=== PATIENT | female | born 1935 | race Caucasian/White ===

== ENCOUNTER 2024-07-31 09:59 | Inpatient (IN) ==
[2024-07-31] MEDS: SODIUM CHLORIDE 0.9% 1,000 ML IV SCH ×2 (11:01→15:18)
--- NOTE | 2024-07-31 11:41 | XRay Report ---
XR chest 1V portable CLINICAL HISTORY: Sepsis. COMPARISON STUDY: No previous studies for comparison. FINDINGS: There is mild elevation of the right hemidiaphragm. Lungs are clear. There is no pneumothor ax or pleural effusion. Cardiac size is normal. Mediastinal contours are normal. There is no evidence for pulmonary edema. IMPRESSION: No acute cardiopulmonary findings. ACT 112: Negative or not required by law. Electronically signed by: Gerard Caldwell M.D. 07/31/2024 11:39 AM
[2024-07-31 12:02] LABS: Hematocrit (blood only) 25.9 % (37.0-47.0); Hemoglobin 9.3 g/dl (12.0-16.0); Mean Corpuscular Hemoglobin 31.3 pg (25.0-34.0); Mean Corpuscular Hgb Conc 35.9 g/dL (32.0-36.0); Mean Corpuscular Volume 87.2 fL (80.0-100.0); Mean Platelet Volume 13.2 fL (9.4-12.4); Platelet Count 87 K/uL (130-400); RDW Coefficient of Variation 13.7 % (11.5-14.5); RDW Standard Deviation 44.2 fL (36.4-46.3); Red Blood Count 2.97 M/uL (4.20-5.40); White Blood Count 9.33 K/ul (4.8-10.8)
[2024-07-31 12:42] LABS: ALC (manual) 4.39 K/uL (1.2-3.4); ANC (manual) 4.67 K/uL (1.4-6.5); Lymphocytes # (manual) 1.12 K/uL (1.2-3.4); Lymphocytes % (manual) 12 %; Monocytes # (manual) 0.28 K/uL (0.11-0.59); Monocytes % (manual) 3 %; Neutrophils # (manual) 4.67 K/uL (1.40-6.50); Neutrophils % (manual) 50 %; Reactive Lymphocytes # (manual) 3.27 K/uL; Reactive Lymphocytes % (manual) 35 %
[2024-07-31 12:47] LABS: Troponin I High Sensitivity 12.1 pg/ml (0-14)
[2024-07-31 12:47] LABS: Procalcitonin 2.32 ng/ml (0-0.5)
--- NOTE | 2024-07-31 12:47 | Emergency Department Note ---
Impression & Plan Generalized weakness, Elevated procalcitonin ED Provider Note ED Provider Note NAME: VON AGUILAR AGE:89 SEX: Female : 1935 ARRIVES VIA: Private vehicle INFORMANT: Patient, family ED PROVIDER(s): Kimberly Meadows DO CHIEF COMPLAINT: Generalized weakness HPI: This is an 89-year-old female brought in by family due to concern for persistent generalized weakness. Patient sustained a fall last week and was taken to an outside facility. Sons at bedside report that she underwent CT and x-ray imaging as well as blood work and was ultimately thought to have a urinary tract infection and started on antibiotics. As a precaution because the patient lives alone the son's brought her home to live with one of them. Patient has had a decreased appetite and persistent weakness. They followed up with her PCP and was told that the urine culture was ultimately negative. They states she did not have any significant traumatic injury when she was evaluated at the outside facility. They were concerned that her symptoms have persisted despite treatment for the urinary tract infection and that upon learning that the ultimate culture was negative they were concerned for the etiology of her persistent weakness and potentially the original cause of her fall a week ago. No recent fevers or chills, no nausea or vomiting. They state prior to the fall a week ago patient would walk independently and would typically go for a walk of approximately a quarter mile every day. PAST MEDICAL HISTORY:See Below PAST SURGICAL HISTORY:See Below FAMILY HISTORY:See Below SOCIAL HISTORY:See Below HOME MEDICATIONS:See Below ALLERGIES:See Below VITALS:See Below PHYSICAL EXAMINATION: GENERAL: alert, unwell appearing, well nourished, no distress, non-toxic EYE EXAM: normal conjunctiva, PERRL and EOM's grossly intact OROPHARYNX: no exudate, no erythema, lips, buccal mucosa, and tongue normal and mucous membranes are moist NECK: supple, no nuchal rigidity, no adenopathy, non-tender LUNGS: Clear to auscultation. Normal chest wall mechanics, no w/r/r HEART: no murmurs, S1 normal and S2 normal ABDOMEN: abdomen soft, non-tender, normo-active bowel sounds, no masses, no rebound or guarding. BACK: Back is symmetrical on inspection and there is no deformity, no midline tenderness, no CVA tenderness. SKIN: no rashes, petechiae, orbruising UPPER EXTREMITIES: upper extremities are grossly normal. FROM, nml pulses b/l. LOWER EXTREMITIES: No pitting edema. FROM, nml pulses b/l. NEURO EXAM: Normal sensorium, cranial nerves II-XII grossly intact, normal speech, no facial droop,nogross weakness of arms, no gross weakness of legs. Gross sensation intact. No ataxia. Vital Signs: reviewed and remarkable Differential Diagnosis: dehydration, stroke, anemia, hypoglycemia, hyponatremia, hypernatremia, urinary tract infection, pneumonia, bronchitis, sepsis, gastroenteritis, additional abdominal pathology, metabolic abnormalities, as well as others were considered MEDICAL DECISION MAKING: This is an 89-year-old male presents to the emergency department due to concern for persistent weakness. Patient with a fall last week, recent diagnosis of urinary tract infection although culture ultimately negative. Family concerned for persistent weakness since that time without improvement. She was afebrile and hemodynamically stable on arrival. Labs drawn and sent, IV established, EKG and chest ray performed at bedside interpreted by me and patient monitored on telemetry. Patient sent for CT/CTA to further evaluate for other neurologic cause of her symptoms. Patient noted to have elevated LFTs however similar compared to 1 week ago based on outside labs. Patient noted to have anemia although this appears stable compared to prior additionally. CT imaging reassuring. Blood cultures had been obtained and sent as a precaution. Lactic acid reassuring however procalcitonin is significantly elevated. No leukocytosis. Patient given IV cefepime as a precaution. Nasal swab negative for acute viral syndrome. Given unclear cause of symptoms and concern for occult infection, case discussed with hospitalist team for additional evaluation and management. Mild hyponatremia was noted. Consultation(s): 1415: Discussed with Carmelita Pham hospitalist team, for additional evaluation and management. ER Treatment Provided: See below Diagnostics Interpreted By Me: -ECG: Normal sinus at 73, normal axis, normal intervals, no acute ST/T wave changes -Cardiac Monitoring: An order was placed for continuous cardiac monitoring. The monitor shows a rate of 78 with normal sinus rhythm. -Laboratory studies: As stated above and show below. -Imaging studies: ct head: no ICH Triage Nursing Note Reviewed Prior/Outside Records Reviewed -prior outpatient evaluation reviewed home papers brought with family at bedside Past Med/Surg History Problem List (Updated 07/31/24 @ 15:58 by JOHNNY Pineda) Glaucoma Hypertension Anemia Elevated liver enzymes Elevated procalcitonin (Acute) Generalized weakness (Acute) Medical History (Updated 07/31/24 @ 15:58 by JOHNNY Pineda) CKD (chronic kidney disease), stage III Osteoporosis Hyperlipidemia Surgical History (Updated 07/31/24 @ 15:58 by JOHNNY Pineda) History of cataract surgery History of arthroplasty of right knee Family History (Updated 07/31/24 @ 16:02 by JOHNNY Pineda) Mother Coronary heart disease Diabetes Sister Cancer Diabetes Social History (Updated 07/31/24 @ 16:04 by JOHNNY Pineda) Smoking Status: Never smoker Hx Alcohol Use: No Hx Substance Use: No Preferred Language: Georgian Communication Ability: Effective Unloader Operator Required: No Beliefs That Will Affect Care: None Current Living Situation: Alone Current Living Situation Comment: live in 2 story house current occupational status: retired Feels Safe at Home: Yes Assistive Devices: Walker Allergies Allergies Allergy/AdvReac Type Severity Reaction Status Date / Time No Known Allergies Allergy Verified 07/31/24 15:55 Home Meds Home Medications Medication Instructions Recorded Confirmed acetaminophen 500 mg tablet 1,000 mg PO DIRECTED PRN Pain 07/31/24 07/31/24 aspirin 81 mg tablet,delayed 81 mg PO HS 07/31/24 07/31/24 release calcium carbonate 1,200 mg PO DAILY 07/31/24 07/31/24 cholecalciferol (vitamin D3) 25 25 mcg PO DAILY 07/31/24 07/31/24 mcg (1,000 unit) capsule latanoprost 0.005 % eye drops 1 drp ophthalmic (eye) PM 07/31/24 07/31/24 lisinopril 20 mg tablet 20 mg PO HS 07/31/24 07/31/24 multivitamin 1 tab PO DAILY 07/31/24 07/31/24 nitrofurantoin 100 mg PO BID 07/31/24 07/31/24 monohydrate/macrocrystals 100 mg capsule timolol maleate 0.5 % eye drops 1 drp ophthalmic (eye) QAM 07/31/24 07/31/24 Results & Data (ED) Vital Signs Vital Signs - 24 hr 07/31/24 10:00 07/31/24 10:09 07/31/24 10:44 Temperature 35.2 C L Temperature Source Oral Pulse Rate 76 76 Pulse Rate [Apical] Respiratory Rate 20 Respiratory Effort / Characteristics Non-Labored Spontaneous Respiratory Depth Normal Respiratory Pattern Blood Pressure 91/58 L Blood Pressure [Right Arm] Blood Pressure Mean 69 Blood Pressure Mean [Right Arm] Pulse Oximetry 99 Oxygen Delivery Method Room Air Room Air Sepsis Recent Fever Within 48 Hours No Sepsis New/Unexplained Change in Mental Status N/A Sepsis Action Taken by Nursing Physician Notified 07/31/24 11:00 07/31/24 13:00 07/31/24 14:00 Temperature Temperature Source Pulse Rate Pulse Rate [Apical] 72 85 86 Respiratory Rate 18 18 18 Respiratory Effort / Characteristics Non-Labored Spontaneous Non-Labored Spontaneous Non-Labored Spontaneous Respiratory Depth Normal Normal Normal Respiratory Pattern Regular Regular Regular Blood Pressure Blood Pressure [Right Arm] 108/58 L 115/61 116/63 Blood Pressure Mean Blood Pressure Mean [Right Arm] 74 79 80 Pulse Oximetry 99 98 98 Oxygen Delivery Method Room Air Room Air Room Air Sepsis Recent Fever Within 48 Hours Sepsis New/Unexplained Change in Mental Status Sepsis Action Taken by Nursing 07/31/24 15:00 Temperature Temperature Source Pulse Rate Pulse Rate [Apical] 83 Respiratory Rate 18 Respiratory Effort / Characteristics Non-Labored Spontaneous Respiratory Depth Normal Respiratory Pattern Regular Blood Pressure Blood Pressure [Right Arm] 109/65 Blood Pressure Mean Blood Pressure Mean [Right Arm] 79 Pulse Oximetry 98 Oxygen Delivery Method Room Air Sepsis Recent Fever Within 48 Hours Sepsis New/Unexplained Change in Mental Status Sepsis Action Taken by Nursing Laboratory Data 08/01/24 06:30 08/01/24 06:30 Lab Results 07/31/24 07/31/24 07/31/24 Range/Units 10:54 10:56 12:06 WBC Cancelled 9.33 RBC Cancelled 2.97 L Hgb Cancelled 9.3 L Hct Cancelled 25.9 L MCV Cancelled 87.2 MCH Cancelled 31.3 MCHC Cancelled 35.9 RDW Std Deviation Cancelled 44.2 RDW Coeff of Casey Cancelled 13.7 Plt Count Cancelled 87 L MPV Cancelled 13.2 H Immature Gran % (Auto) Cancelled Neut % (Auto) Cancelled Lymph % (Auto) Cancelled [place] % (Auto) Cancelled Eos % (Auto) Cancelled Baso % (Auto) Cancelled Neut # (Auto) Cancelled Lymph # (Auto) Cancelled [place] # (Auto) Cancelled Eos # (Auto) Cancelled Baso # (Auto) Cancelled Immature Gran # (Auto) Cancelled Absolute Nucleated RBC Cancelled Nucleated RBC % (auto) Cancelled Neutrophils % (Manual) Cancelled 50 Band Neutrophils % Cancelled Lymphocytes % (Manual) Cancelled 12 Prolymphocyte % Cancelled Reactive Lymphs % (Man) Cancelled 35 Monocytes % (Manual) Cancelled 3 Eosinophils % (Manual) Cancelled Basophils % (Manual) Cancelled Metamyelocytes % (Man) Cancelled Myelocytes % (Man) Cancelled Promyelocytes % (Man) Cancelled Blast Cells % (Manual) Cancelled Plasma Cell % (Manual) Cancelled Other Cells % Cancelled Nucleated RBC % Cancelled Neutrophils # (Manual) Cancelled 4.67 Band Neutrophils # Cancelled Total Absolute Neuts Cancelled 4.67 Lymphocytes # (Manual) Cancelled 1.12 L Prolymphocyte # Cancelled Reactive Lymphs # Cancelled 3.27 Total Abs Lymphocytes Cancelled 4.39 H Monocytes # (Manual) Cancelled 0.28 Eosinophils # (Manual) Cancelled Basophils # (Manual) Cancelled Metamyelocytes # (Man) Cancelled Myelocytes # (Manual) Cancelled Promyelocytes # (Man) Cancelled Blast Cells # (Man) Cancelled Plasma Cell # (Manual) Cancelled Other Cells # Cancelled Nucleated RBCs # (Man) Cancelled Hypersegmented Neuts Cancelled Hyposegmented Neuts Cancelled Hypogranular Neuts Cancelled Large Granular Lymphs Cancelled # Lrg Granular Lymphs Cancelled Hairy Cells Cancelled Smudge Cells Cancelled Toxic Granulation Cancelled Toxic Vacuolation Cancelled Dohle Bodies Cancelled Taylor Rods Cancelled Platelet Estimate Cancelled Hypogranular Platelets Cancelled Giant Platelets Cancelled Platelet Satelliting Cancelled RBC Morphology Cancelled Polychromasia Cancelled Hypochromasia Cancelled Poikilocytosis Cancelled Basophilic Stippling Cancelled Anisocytosis Cancelled Microcytosis Cancelled Macrocytosis Cancelled Spherocytes Cancelled Pappenheimer Bodies Cancelled Sickle Cells Cancelled Target Cells Cancelled Tear Drop Cells Cancelled Ovalocytes Cancelled Stomatocytes Cancelled [place] Bodies Cancelled Echinocytes Cancelled Acanthocytes (Spur) Cancelled Rouleaux Cancelled RBC Agglutinates Cancelled Schistocytes Cancelled [place] Cell Cancelled Sodium 131 L (136-145) mmol/L Potassium 3.8 (3.5-5.1) mmol/L Chloride 100 (98-107) mmol/L Carbon Dioxide 26 (21-32) mmol/L Anion Gap 5 (3-11) BUN 40 H (6-23) mg/dl Creatinine 1.16 (0.6-1.2) mg/dl Est Cr Clr Drug Dosing 32.0 ml/min eGFR 45.07 BUN/Creatinine Ratio 34.5 H (10-20) Glucose 102 H (70-99(Fasting)) mg/dl Lactate 1.9 (0.4-2.0) mmol/L Calcium 8.2 L (8.6-10.3) mg/dl Magnesium 2.2 (1.7-2.4) mg/dl Iron 20 L (35-150) mcg/dl Unsaturated IBC 161 (155-355) mcg/dl Transferrin 157 L (200-360) mg/dl Ferritin 6873.0 H (8-388) ng/ml Total Bilirubin 0.8 (0.2-1.0) mg/dl Direct Bilirubin 0.2 (0-0.2) mg/dl AST 165 H (13-39) U/L ALT 116 H (7-52) U/L Alkaline Phosphatase 262 H (34-104) U/L Total Creatine Kinase 127 (26-192) U/L Troponin I High Sens 12.1 (0-14) pg/ml B-Natriuretic Peptide (0-100) pg/ml Total Protein 6.2 (6.0-8.3) gm/dl Albumin 3.0 L (3.4-5.0) gm/dl Vitamin B12 (180-914) pg/ml Folate (>5.38) ng/ml Procalcitonin Cancelled 2.32 H TSH 4.598 H (0.300-4.500) uIu/ml Free T4 1.17 (0.61-1.60) ng/dl Anaplasma Smear Cancelled See Comment Babesia Smear Cancelled See Comment Lyme Disease Screen Cancelled Negative Blood Parasites ID Cancelled 07/31/24 Range/Units 15:23 WBC RBC Hgb Hct MCV MCH MCHC RDW Std Deviation RDW Coeff of Casey Plt Count MPV Immature Gran % (Auto) Neut % (Auto) Lymph % (Auto) [place] % (Auto) Eos % (Auto) Baso % (Auto) Neut # (Auto) Lymph # (Auto) [place] # (Auto) Eos # (Auto) Baso # (Auto) Immature Gran # (Auto) Absolute Nucleated RBC Nucleated RBC % (auto) Neutrophils % (Manual) Band Neutrophils % Lymphocytes % (Manual) Prolymphocyte % Reactive Lymphs % (Man) Monocytes % (Manual) Eosinophils % (Manual) Basophils % (Manual) Metamyelocytes % (Man) Myelocytes % (Man) Promyelocytes % (Man) Blast Cells % (Manual) Plasma Cell % (Manual) Other Cells % Nucleated RBC % Neutrophils # (Manual) Band Neutrophils # Total Absolute Neuts Lymphocytes # (Manual) Prolymphocyte # Reactive Lymphs # Total Abs Lymphocytes Monocytes # (Manual) Eosinophils # (Manual) Basophils # (Manual) Metamyelocytes # (Man) Myelocytes # (Manual) Promyelocytes # (Man) Blast Cells # (Man) Plasma Cell # (Manual) Other Cells # Nucleated RBCs # (Man) Hypersegmented Neuts Hyposegmented Neuts Hypogranular Neuts Large Granular Lymphs # Lrg Granular Lymphs Hairy Cells Smudge Cells Toxic Granulation Toxic Vacuolation Dohle Bodies Taylor Rods Platelet Estimate Hypogranular Platelets Giant Platelets Platelet Satelliting RBC Morphology Polychromasia Hypochromasia Poikilocytosis Basophilic Stippling Anisocytosis Microcytosis Macrocytosis Spherocytes Pappenheimer Bodies Sickle Cells Target Cells Tear Drop Cells Ovalocytes Stomatocytes [place] Bodies Echinocytes Acanthocytes (Spur) Rouleaux RBC Agglutinates Schistocytes [place] Cell Sodium (136-145) mmol/L Potassium (3.5-5.1) mmol/L Chloride (98-107) mmol/L Carbon Dioxide (21-32) mmol/L Anion Gap (3-11) BUN (6-23) mg/dl Creatinine (0.6-1.2) mg/dl Est Cr Clr Drug Dosing ml/min eGFR BUN/Creatinine Ratio (10-20) Glucose (70-99(Fasting)) mg/dl Lactate (0.4-2.0) mmol/L Calcium (8.6-10.3) mg/dl Magnesium (1.7-2.4) mg/dl Iron (35-150) mcg/dl Unsaturated IBC (155-355) mcg/dl Transferrin (200-360) mg/dl Ferritin (8-388) ng/ml Total Bilirubin (0.2-1.0) mg/dl Direct Bilirubin (0-0.2) mg/dl AST (13-39) U/L ALT (7-52) U/L Alkaline Phosphatase (34-104) U/L Total Creatine Kinase (26-192) U/L Troponin I High Sens (0-14) pg/ml B-Natriuretic Peptide 269 H (0-100) pg/ml Total Protein (6.0-8.3) gm/dl Albumin (3.4-5.0) gm/dl Vitamin B12 1422 H (180-914) pg/ml Folate 13.64 (>5.38) ng/ml Procalcitonin TSH (0.300-4.500) uIu/ml Free T4 (0.61-1.60) ng/dl Anaplasma Smear Babesia Smear Lyme Disease Screen Blood Parasites ID Administered Medications Aspirin (Aspirin 81 Mg Ectab) 81 mg PO EDISON Stop: 08/30/24 20:59 Last Admin: 07/31/24 21:00 Dose: 81 mg Documented By: YUDY Calcium Carbonate (Calcium Carbonate 1,250 Mg/5 Ml Udc) 1,200 mg PO QA EDISON Stop: 08/31/24 08:59 Last Admin: 08/01/24 08:54 Dose: 1,200 mg Documented By: TOMMY Sodium Chloride (Nss) 1,000 mls @ 125 mls/hr IV .Q8H EDISON Stop: 08/03/24 12:14 Last Admin: 08/01/24 13:21 Dose: 125 mls/hr Documented By: Infusion: 08/01/24 13:21 Dose: Infused Documented By: Admin: 08/01/24 06:24 Dose: 125 mls/hr Documented By: Infusion: 08/01/24 06:24 Dose: Infused Documented By: Admin: 07/31/24 22:49 Dose: 125 mls/hr Documented By: Infusion: 07/31/24 22:49 Dose: Infused Documented By: Admin: 07/31/24 21:19 Dose: Not Given Documented By: Admin: 07/31/24 15:18 Dose: 125 mls/hr Documented By: RUDY Ceftriaxone Sodium (Rocephin) 2,000 mg in 50 mls @ 100 mls/hr IV Q24H EDISON Stop: 08/02/24 20:59 Last Infusion: 07/31/24 21:44 Dose: Infused Documented By: Admin: 07/31/24 21:00 Dose: 100 mls/hr Documented By: YUDY Latanoprost (Latanoprost 0.005% Op Soln 2.5 Ml Btl) 1 drops OP PM EDISON Stop: 08/30/24 20:59 Last Admin: 07/31/24 20:59 Dose: 1 drops Documented By: YUDY Lisinopril (Lisinopril 20 Mg Tab) 20 mg PO HS EDISON Stop: 08/30/24 20:59 Last Admin: 07/31/24 21:00 Dose: 20 mg Documented By: YUDY Timolol Maleate (Timolol Maleate 0.5% Op Soln 5 Ml Btl) 1 drops OP QAM EDISON Stop: 08/31/24 08:59 Last Admin: 08/01/24 08:55 Dose: 1 drops Documented By: TOMMY Vitamin D (Cholecalciferol 25 Mcg (1000 Units) Tab) 25 mcg PO DAILY EDISON Stop: 08/31/24 08:59 Last Admin: 08/01/24 08:54 Dose: 25 mcg Documented By: TOMMY Discontinued Medications Sodium Chloride (Nss) 1,000 mls @ 999 mls/hr IV .Q1H1M EDISON Stop: 07/31/24 11:45 Last Infusion: 07/31/24 12:02 Dose: Infused Documented By: Admin: 07/31/24 11:01 Dose: 999 mls/hr Documented By: RUDY Cefepime HCl (Maxipime 2000mg) 2,000 mg in 20 mls @ 5 mls/min IV NOW STA; Protocol Stop: 07/31/24 12:55 Last Admin: 07/31/24 13:15 Dose: 5 mls/min Documented By: RUDY Ioversol (Optiray 320 125ml) 119 ml IV ONCE ONE Stop: 07/31/24 13:07 Last Admin: 07/31/24 13:07 Dose: 119 ml Documented By: YAMILKA Imaging Data Radiologist's Impression: Chest X-Ray 07/31/24 10:37 XR chest 1V portable CLINICAL HISTORY: Sepsis. COMPARISON STUDY: No previous studies for comparison. FINDINGS: There is mild elevation of the right hemidiaphragm. Lungs are clear. There is no pneumothorax or pleural effusion. Cardiac size is normal. Mediastinal contours are normal. There is no evidence for pulmonary edema. IMPRESSION: No acute cardiopulmonary findings. ACT 112: Negative or not required by law. Electronically signed by: Gerard Caldwell M.D. 07/31/2024 11:[address] 07/31/24 12:03 CT SCAN OF THE BRAIN WITHOUT IV CONTRAST CLINICAL HISTORY: Recent fall. Altered mental status. COMPARISON STUDY: None. TECHNIQUE: Unenhanced axial CT scan of the brain was performed from the vertex to the skull base. A dose lowering technique was utilized adhering to the principles of ALARA. CT DOSE: 1007.36 mGy.cm FINDINGS: Brain parenchyma: No acute intracranial hemorrhage, midline shift or mass effect is present. Maldonado-white matter differentiation is preserved. There are no extra- axial fluid collections. There are no findings to suggest acute dural sinus thrombosis or acute territorial infarct. Ventricles, sulci, cisterns: There is no hydrocephalus. The basal cisterns are patent. Calvarium: There are no calvarial fractures. Sinuses and mastoids: The visualized paranasal sinuses are clear. The mastoid air cells are well pneumatized. Orbits: The bony orbits are grossly intact. IMPRESSION: 1. No acute intracranial findings. 2. No calvarial fractures. ACT 112: Negative or not required by law. Electronically signed by: Gerard Caldwell M.D. 07/31/2024 1:28 PM Head CTA 07/31/24 12:03 CTA ANGIOGRAPHY OF THE HEAD CLINICAL HISTORY: Altered mental status. Weakness. COMPARISON STUDY: No previous studies for comparison. TECHNIQUE: Helical axial images of the head were obtained following uneventful intravenous administration of 119 cc of Optiray. Sagittal and coronal reconstructions were viewed as well as maximal intensity projections on an independent 3-D workstation. Automated exposure control was utilized for the study. A dose lowering technique was utilized adhering to the principles of ALARA. FINDINGS: No acute intracranial hemorrhage, midline shift or mass effect is present. The ventricular system is normal. Basal cisterns are patent. There are no extra axial collections. There are no calvarial fractures. There is mild atherosclerotic plaque within the bilateral cavernous carotids without stenosis. There is persistence of the posterior cerebral arteries. The bilateral M1, M2, A1 and A2 segments are patent. No intracranial aneurysm or vessel occlusion. IMPRESSION: No intracranial vessel occlusion or aneurysm. ACT 112: Negative or not required by law. Electronically signed by: Gerard Caldwell M.D. 07/31/2024 1:31 PM Neck CTA 07/31/24 12:03 CT ANGIOGRAPHY OF THE NECK WITH CONTRAST CLINICAL HISTORY: Altered mental status, weakness COMPARISON STUDY: No previous studies for comparison. Technique: CT angiography of the carotid and vertebral arteries was obtained using Optiray and 3D reconstruction on an independent workstation. NASCET criteria was utilized. Automated exposure control was utilized for the study. A dose lowering technique was utilized adhering to the principles of ALARA. Findings: Visualized portions of the lung apices are unremarkable. There is no cervical lymphadenopathy. There are no cervical spine fractures. Loss of height of the T4 vertebral body is likely chronic. A few small thyroid nodules are incidentally noted. The bilateral common carotid, cervical internal carotid and vertebral arteries are patent. There is mild atherosclerotic plaque within the proximal bilateral internal carotid arteries without stenosis. No dissection or aneurysm within the neck is identified. IMPRESSION: Unremarkable CTA of the neck. ACT 112: Negative or not required by law. Electronically signed by: Gerard Caldwell M.D. 07/31/2024 1:26 PM Liver Ultrasound 07/31/24 14:57 US liver CLINICAL HISTORY: elevated LFTs COMPARISON STUDY: None FINDINGS: Pancreatic tail is obscured. Visualized pancreatic body is grossly unremarkable. Liver has mild diffusely heterogeneous echotexture. Liver is otherwise unremarkable measuring 14 cm. There are small gallstones and gallbladder sludge. No gallbladder wall thickening. No pericholecystic fluid or ascites. There is normal direction of flow in the portal vein. Right kidney shows minimal hydronephrosis. No right renal calculi seen. Common bile duct is dilated at 1 cm diameter. Distal common bile duct is not visualized. IMPRESSION: 1. Mild diffusely heterogeneous liver echotexture. Differential diagnosis includes mild fatty liver and early cirrhosis. No ascites seen. 2. Multiple gallstones and gallbladder sludge without evidence of acute cholecystitis. 3. Dilated common bile duct. Distal common bile duct is not visualized. 4. Minimal right hydronephrosis without renal calculi. ACT 112: Negative or not required by law. Electronically signed by: Rasta Parson M.D. 07/31/2024 4:03 PM Discharge Plan Visit Data Chief Complaint: Weakness Stated Complaint: EXTREME WEAKNESS, INABILITY TO WALK ED Provider: Kimberly Meadows Discharge Problem: Generalized weakness, Elevated procalcitonin Patient Disposition: Admitted As Inpatient Condition: Fair Discharge Instructions Interventions: ED Discharge Assessment Last Done: 07/31/24 16:38
[2024-07-31 12:48] LABS: Bilirubin Direct 0.2 mg/dl (0-0.2); Potassium 3.8 mmol/L (3.5-5.1)
[2024-07-31 12:49] LABS: BUN Creatinine Ratio 34.5 (10-20); Bilirubin,Total 0.8 mg/dl (0.2-1.0); Calcium 8.2 mg/dl (8.6-10.3); Magnesium 2.2 mg/dl (1.7-2.4); Total Protein 6.2 gm/dl (6.0-8.3)
[2024-07-31] MEDS: OPTIRAY 320 125ml IV ONE (13:07)
[2024-07-31 13:12] LABS: Lyme Screen Rflx Confirmation Negative (Negative)
[2024-07-31] MEDS: CEFEPIME 2000MG 2,000 MG/20 ML SYR IV STA (13:15)
--- NOTE | 2024-07-31 13:29 | CT Scan Report ---
CT SCAN OF THE BRAIN WITHOUT IV CONTRAST CLINICAL HISTORY: Recent fall. Altered mental status. COMPARISON STUDY: None. TECHNIQUE: Unenhanced axial CT scan of the brain was performed from the vertex to the skull base. A dose lowering technique was utilized adhering to the principles of ALARA. CT DOSE: 1007.36 mGy.cm FINDINGS: Brain parenchyma: No acute intracranial hemorrhage, midline shift or mass effect is present. Maldonado-whi te matter differentiation is preserved. There are no extra-axial fluid collections. There are no find ings to suggest acute dural sinus thrombosis or acute territorial infarct. Ventricles, sulci, cisterns: There is no hydrocephalus. The basal cisterns are patent. Calvarium: There are no calvarial fractures. Sinuses and mastoids: The visualized paranasal sinuses are clear. The mastoid air cells are well pneu matized. Orbits: The bony orbits are grossly intact. IMPRESSION: 1. No acute intracranial findings. 2. No calvarial fractures. ACT 112: Negative or not required by law. Electronically signed by: Gerard Caldwell M.D. 07/31/2024 1:28 PM
--- NOTE | 2024-07-31 13:29 | CT Scan Report ---
CT ANGIOGRAPHY OF THE NECK WITH CONTRAST CLINICAL HISTORY: Altered mental status, weakness COMPARISON STUDY: No previous studies for comparison. Technique: CT angiography of the carotid and vertebral arteries was obtained using Optiray and 3D rec onstruction on an independent workstation. NASCET criteria was utilized. Automated exposure control was utilized for the study. A dose lowering technique was utilized adhering to the principles of ALA RA. Findings: Visualized portions of the lung apices are unremarkable. There is no cervical lymphadenopat hy. There are no cervical spine fractures. Loss of height of the T4 vertebral body is likely chronic. A few small thyroid nodules are incidentally noted. The bilateral common carotid, cervical internal carotid and vertebral arteries are patent. There is mild atherosclerotic plaque within the proximal b ilateral internal carotid arteries without stenosis. No dissection or aneurysm within the neck is mirna ntified. IMPRESSION: Unremarkable CTA of the neck. ACT 112: Negative or not required by law. Electronically signed by: Gerard Caldwell M.D. 07/31/2024 1:26 PM
--- NOTE | 2024-07-31 13:32 | CT Scan Report ---
CTA ANGIOGRAPHY OF THE HEAD CLINICAL HISTORY: Altered mental status. Weakness. COMPARISON STUDY: No previous studies for comparison. TECHNIQUE: Helical axial images of the head were obtained following uneventful intravenous administr ation of 119 cc of Optiray. Sagittal and coronal reconstructions were viewed as well as maximal inten sity projections on an independent 3-D workstation. Automated exposure control was utilized for the study. A dose lowering technique was utilized adhering to the principles of ALARA. FINDINGS: No acute intracranial hemorrhage, midline shift or mass effect is present. The ventricular system is normal. Basal cisterns are patent. There are no extra axial collections. There are no kerwin rial fractures. There is mild atherosclerotic plaque within the bilateral cavernous carotids without stenosis. There is persistence of the posterior cerebral arteries. The bilateral M1, M2, A1 and A2 segments are patent. No intracranial aneurysm or vessel occlusion. IMPRESSION: No intracranial vessel occlusion or aneurysm. ACT 112: Negative or not required by law. Electronically signed by: Gerard Caldwell M.D. 07/31/2024 1:31 PM
--- NOTE | 2024-07-31 14:56 | History & Physical Report ---
Date of Service July 31, 2024 Assessment & Plan (1) Generalized weakness: (2) Anemia: (3) Elevated liver enzymes: (4) Hypertension: (5) Glaucoma: Plan 89 year old female with PMH significant for hypertension, hyperlipidemia, CKD III, glaucoma, and osteoporosis who presented to the ED today with weakness for the last week. Generalized weakness Could be due to: -Possible infection given low temp and elevated procal at 2.32 -Dehydration/poor PO intake per history and sodium 131 -CHF given BLE edema and BNP 269 (up from 75.8 on 07/24) -Anemia as below Workup thus far: -Head CT, head and neck CTA, CXR all unremarkable -EKG with NSR -Lactate, CK, troponin negative -Lyme, anaplasma, babesia screens negative -UA negative Plan: -Follow urine and blood cultures for possible infectious source -Continue empiric rocephin x48 hours -Additional lyme studies pending -TSH 4.5 with free T4 pending -Echo pending -PT/OT/ST consults Anemia RBCs 2.97 (down from 3.51 on 07/24), Hgb 9.3 (down from 11.3 on 07/24), Hct 25.9% (down from 33% on 07/24), Plt 87 (down from 151 on 07/24) Iron 20, transferrin 157, TIBC 161, ferritin pending Folate normal Vitamin B12 1422 - consider liver, renal, hematological etiologies Elevated liver enzymes AST 165 (up from 132 on 07/24), ALT 116 (up from 91 on 07/24), alk phos 262 (up from 99 on 07/24) Liver ultrasound pending CMP and PT/INR in am Consider Hepatitis panel if no improvement Hypertension Chronic, stable per records Continue lisinopril per home dosing Glaucoma Follows with eye doctor per records Continue eye drops per home dosing CKD III Chronic, stable per records Creat 1.16 (down from 1.5 on 07/24). GFR 45 (up from 34.8 on 07/24) Hyperlipidemia Chronic, stable per records Not on statin due to age Osteoporosis Chronic, stable per records Takes calcium and vitamin D supplement per records DVT Prophylaxis: SCDs Code Status: FULL CODE - As per discussion at bedside with the patient. PCP: None Disposition: admit to [facility] tele Patient seen in collaboration with Dr Najera. Please see addendum. I spent a total of 75 minutes coordinating, documenting and providing care for this patient excluding time spent in the performance of separately billed services or time spent by another provider/QHP. Admission and Anticipated Discharge Date Admission Date: 07/31/24 History of Present Illness Chief Complaint: weakness Primary Care Provider: NO PCP 89 year old female with PMH significant for hypertension, hyperlipidemia, CKD III, glaucoma, and osteoporosis who presented to the ED today with weakness for the last week. History obtained from patient, her sons, and outside records. Patient reports that she fell last and could not get up due to feeling weak. She notes she hit the left side of her head but did not lose consciousness. She was down for approximately four hours. She sought evaluation at [facility] ED on 07/24/2024 where she had multiple imaging studies (head CT, cervical spine CT, maxillofacial CT, left shoulder xray, CXR) that were all largely unremarkable per records. Her labs demonstrated mild anemia and elevated LFTs. Her UA was suspicious for infection. She was discharged from the ED with a 7 day course of Macrobid and followed up with her PCP on 07/30/2024. Her PCP noted negative urine and blood cultures per records. Since the fall, she has had ongoing weakness and poor appetite. She also notes difficulty chewing. She denies fevers, chills, cough, cold symptoms, chest pain, SOB, abdominal pain, N/V, urinary symptoms. She notes a runny nose that is year round for her and one episode of diarrhea on Sunday that has since resolved. She reports bilateral leg swelling over the last week. She has been living with her sons in [place] since the fall. Prior to the fall, her sons last saw her over [facility] of this year where they noted she was at her baseline and functioning independently at home and walking 1/4 mile per day. Since the fall, she has needed assistance with ADLs. Her son also notes concern about potential Parkinson's disease as he reports bilateral hand tremors, shuffling gait, and drooling that have been progressing over the last year. Allergies Allergy/AdvReac Type Severity Reaction Status Date / Time No Known Allergies Allergy Verified 07/31/24 15:55 Home Medications Medication Instructions Recorded Confirmed Type acetaminophen 500 mg tablet 1,000 mg PO DIRECTED PRN Pain 07/31/24 07/31/24 History aspirin 81 mg tablet,delayed 81 mg PO HS 07/31/24 07/31/24 History release latanoprost 0.005 % eye drops 1 drp ophthalmic (eye) PM 07/31/24 07/31/24 History lisinopril 20 mg tablet 20 mg PO HS 07/31/24 07/31/24 History multivitamin 1 tab PO DAILY 07/31/24 07/31/24 History nitrofurantoin 100 mg PO BID 07/31/24 07/31/24 History monohydrate/macrocrystals 100 mg capsule timolol maleate 0.5 % eye drops 1 drp ophthalmic (eye) QAM 07/31/24 07/31/24 History Past Med/Surg History Problem List (Updated 07/31/24 @ 15:58 by JOHNNY Pineda) Glaucoma Hypertension Anemia Elevated liver enzymes Elevated procalcitonin (Acute) Generalized weakness (Acute) Medical History (Updated 07/31/24 @ 15:58 by JOHNNY Pineda) CKD (chronic kidney disease), stage III Osteoporosis Hyperlipidemia Surgical History (Updated 07/31/24 @ 15:58 by JOHNNY Pineda) History of cataract surgery History of arthroplasty of right knee Family History (Updated 07/31/24 @ 16:02 by JOHNNY Pineda) Mother Coronary heart disease Diabetes Sister Cancer Diabetes Social History (Updated 07/31/24 @ 16:04 by JOHNNY Pineda) Smoking Status: Never smoker Hx Alcohol Use: No Hx Substance Use: No Current Living Situation: Family current occupational status: retired Feels Safe at Home: Yes Review of Systems Review of Systems: All systems reviewed & are unremarkable except as noted in HPI & below Physical Exam Physical Exam: refer to exam by Dr Najera Results & Data Results & Data Vital Signs (Past 12 Hours) Vital Signs Temp Pulse Pulse Resp BP BP Pulse Ox 07/31/24 14:00 86 18 116/63 98 07/31/24 13:00 85 18 115/61 98 07/31/24 11:00 72 18 108/58 L 99 07/31/24 10:44 76 07/31/24 10:09 35.2 C L 76 20 91/58 L 99 07/31/24 10:00 O2 Del Method 07/31/24 14:00 Room Air 07/31/24 13:00 Room Air 07/31/24 11:00 Room Air 07/31/24 10:44 07/31/24 10:09 Room Air 07/31/24 10:00 Room Air Laboratory Results Short CBC 07/31/24 07/31/24 Range/Units 10:54 10:56 WBC Cancelled 9.33 Hgb Cancelled 9.3 L Hct Cancelled 25.9 L Plt Count Cancelled 87 L BMP 07/31/24 10:54 Sodium 131 L Potassium 3.8 Chloride 100 Carbon Dioxide 26 BUN 40 H Creatinine 1.16 Glucose 102 H Calcium 8.2 L Cardiac Enzymes 07/31/24 Range/Units 10:54 Total Creatine Kinase 127 (26-192) U/L Liver Function 07/31/24 Range/Units 10:54 Total Bilirubin 0.8 (0.2-1.0) mg/dl Direct Bilirubin 0.2 (0-0.2) mg/dl AST 165 H (13-39) U/L ALT 116 H (7-52) U/L Alkaline Phosphatase 262 H (34-104) U/L Albumin 3.0 L (3.4-5.0) gm/dl I have independently reviewed and interpreted patient's admitting labs including CBC, CMP, mag, troponin, lactate, CK. Diagnostic Findings Chest X-Ray 07/31/24 10:37 XR chest 1V portable CLINICAL HISTORY: Sepsis. COMPARISON STUDY: No previous studies for comparison. FINDINGS: There is mild elevation of the right hemidiaphragm. Lungs are clear. There is no pneumothorax or pleural effusion. Cardiac size is normal. Mediastinal contours are normal. There is no evidence for pulmonary edema. IMPRESSION: No acute cardiopulmonary findings. ACT 112: Negative or not required by law. Electronically signed by: Gerard Caldwell M.D. 07/31/2024 11:[address] 07/31/24 12:03 CT SCAN OF THE BRAIN WITHOUT IV CONTRAST CLINICAL HISTORY: Recent fall. Altered mental status. COMPARISON STUDY: None. TECHNIQUE: Unenhanced axial CT scan of the brain was performed from the vertex to the skull base. A dose lowering technique was utilized adhering to the principles of ALARA. CT DOSE: 1007.36 mGy.cm FINDINGS: Brain parenchyma: No acute intracranial hemorrhage, midline shift or mass effect is present. Maldonado-white matter differentiation is preserved. There are no extra- axial fluid collections. There are no findings to suggest acute dural sinus thrombosis or acute territorial infarct. Ventricles, sulci, cisterns: There is no hydrocephalus. The basal cisterns are patent. Calvarium: There are no calvarial fractures. Sinuses and mastoids: The visualized paranasal sinuses are clear. The mastoid air cells are well pneumatized. Orbits: The bony orbits are grossly intact. IMPRESSION: 1. No acute intracranial findings. 2. No calvarial fractures. ACT 112: Negative or not required by law. Electronically signed by: Gerard Caldwell M.D. 07/31/2024 1:28 PM Head CTA 07/31/24 12:03 CTA ANGIOGRAPHY OF THE HEAD CLINICAL HISTORY: Altered mental status. Weakness. COMPARISON STUDY: No previous studies for comparison. TECHNIQUE: Helical axial images of the head were obtained following uneventful intravenous administration of 119 cc of Optiray. Sagittal and coronal reconstructions were viewed as well as maximal intensity projections on an independent 3-D workstation. Automated exposure control was utilized for the study. A dose lowering technique was utilized adhering to the principles of ALARA. FINDINGS: No acute intracranial hemorrhage, midline shift or mass effect is present. The ventricular system is normal. Basal cisterns are patent. There are no extra axial collections. There are no calvarial fractures. There is mild atherosclerotic plaque within the bilateral cavernous carotids without stenosis. There is persistence of the posterior cerebral arteries. The bilateral M1, M2, A1 and A2 segments are patent. No intracranial aneurysm or vessel occlusion. IMPRESSION: No intracranial vessel occlusion or aneurysm. ACT 112: Negative or not required by law. Electronically signed by: Gerard Caldwell M.D. 07/31/2024 1:31 PM Neck CTA 07/31/24 12:03 CT ANGIOGRAPHY OF THE NECK WITH CONTRAST CLINICAL HISTORY: Altered mental status, weakness COMPARISON STUDY: No previous studies for comparison. Technique: CT angiography of the carotid and vertebral arteries was obtained using Optiray and 3D reconstruction on an independent workstation. NASCET criteria was utilized. Automated exposure control was utilized for the study. A dose lowering technique was utilized adhering to the principles of ALARA. Findings: Visualized portions of the lung apices are unremarkable. There is no cervical lymphadenopathy. There are no cervical spine fractures. Loss of height of the T4 vertebral body is likely chronic. A few small thyroid nodules are incidentally noted. The bilateral common carotid, cervical internal carotid and vertebral arteries are patent. There is mild atherosclerotic plaque within the proximal bilateral internal carotid arteries without stenosis. No dissection or aneurysm within the neck is identified. IMPRESSION: Unremarkable CTA of the neck. ACT 112: Negative or not required by law. Electronically signed by: Gerard Caldwell M.D. 07/31/2024 1:26 PM Liver Ultrasound 07/31/24 14:57 US liver CLINICAL HISTORY: elevated LFTs COMPARISON STUDY: None FINDINGS: Pancreatic tail is obscured. Visualized pancreatic body is grossly unremarkable. Liver has mild diffusely heterogeneous echotexture. Liver is otherwise unremarkable measuring 14 cm. There are small gallstones and gallbladder sludge. No gallbladder wall thickening. No pericholecystic fluid or ascites. There is normal direction of flow in the portal vein. Right kidney shows minimal hydronephrosis. No right renal calculi seen. Common bile duct is dilated at 1 cm diameter. Distal common bile duct is not visualized. IMPRESSION: 1. Mild diffusely heterogeneous liver echotexture. Differential diagnosis includes mild fatty liver and early cirrhosis. No ascites seen. 2. Multiple gallstones and gallbladder sludge without evidence of acute cholecystitis. 3. Dilated common bile duct. Distal common bile duct is not visualized. 4. Minimal right hydronephrosis without renal calculi. ACT 112: Negative or not required by law. Electronically signed by: Rasta Parson M.D. 07/31/2024 4:03 PM ECG Additional Comments: I have independently reviewed and interpreted patient's admitting EKG which revealed: NSR at a rate of 73bpm Code Status & VTE Plan Code Status Full Code Supervising Physician Co-Signing Physician Notes Presents with increased generalized weakness for the past week, had a fall a week ago. Associated with anorexia, some problems eating that patient could not describe. Denied odynophagia No fevers, chills, dysuria, hematuria, cough, chest pain. ROS noted chronic rhinorrhea, diarrhea last week that resolved and leg swelling over the past week Sons at bedside noted patient has had shuffling gait, occasional hand tremors and drooling that is progressive for sometime. She use to be independent until after fall a week ago On exam, General: Elderly woman, ill appearing Eyes: PERRL, conjunctivae normal, not pale, anicteric sclerae, EOM intact bilaterally ENMT: External ear and nose normal, oropharynx normal Respiratory: Normal respiratory effort, no respiratory distress, lungs clear to auscultation, no crackles and no wheezes Cardiovascular: RRR S1 S2 Gastrointestinal (Abdomen): Abdomen is not distended, soft, non-tender to palpation, no guarding, no palpable hepatosplenomegaly, normal bowel sounds Musculoskeletal: +bilateral pedal edema Genitourinary: No CVA tenderness Neurologic: Alert and oriented x 3, +generalized weakness, No focal weakness Psychiatric: Flat affect Labs notable for Hb of 9.3, Na 131, AST 165, ALT 116, Alk P [address] head, CTA head and neck were unremarkable Reviewed CXR which did not show acute abnormalities Reviewed EKG which was NSR Reviewed some records sons provided. Labs from 07/24/24 showed Hb in 11s, UA had trace leuk esterase and 10-20WBC as well as elevated LFTs Considering temp of 35.2 and elevated procal, concern for infection with unclear source at this time Had been on macrobid for the past week Still awaiting UA ordered to be sent Will continue empirical ceftriaxone for now until infectious workup results. Increased weakness and pedal edema may be signs of congestive heart failure. Trop is normal However, get BNP and TTE Considering poor oral intake, will hold off IV diuretics for today until more results/evaluation. May need diuretics later Elevated LFTs mildly increased compared to recent outpatient tests. This may be due to infection but cannot rule out causes such as congestive hepatopathy Monitor LFT Get Liver USS Anemia workup Check TSH w/reflex T4 PT/OT/SPEECH/LANGUAGE THERAPIST Possible parkinson based on hx provided by yanna. May need follow up Neuro for further eval after management of acute illness Other plans as detailed by Vero TURNER I spent a total of 45 minutes coordinating, documenting and providing care for this patient excluding time spent in performance of separately billed services
--- NOTE | 2024-07-31 16:04 | Ultrasound Report ---
US liver CLINICAL HISTORY: elevated LFTs COMPARISON STUDY: None FINDINGS: Pancreatic tail is obscured. Visualized pancreatic body is grossly unremarkable. Liver has mild diffusely heterogeneous echotexture. Liver is otherwise unremarkable measuring 14 cm. There are small gallstones and gallbladder sludge. No gallbladder wall thickening. No pericholecystic fluid or ascites. There is normal direction of flow in the portal vein. Right kidney shows minimal hydronephro sis. No right renal calculi seen. Common bile duct is dilated at 1 cm diameter. Distal common bile du ct is not visualized. IMPRESSION: 1. Mild diffusely heterogeneous liver echotexture. Differential diagnosis includes mild fatty liver a nd early cirrhosis. No ascites seen. 2. Multiple gallstones and gallbladder sludge without evidence of acute cholecystitis. 3. Dilated common bile duct. Distal common bile duct is not visualized. 4. Minimal right hydronephrosis without renal calculi. ACT 112: Negative or not required by law. Electronically signed by: Rasta Parson M.D. 07/31/2024 4:03 PM
[2024-07-31 16:18] LABS: Appearance Urine Clear (Clear); Bacteria Urine Automated None Seen (None Seen); Bilirubin Urine Negative (Negative); Blood Urine Negative (Negative); Cast Urine Automated 0-2 /lpf (0-2); Color Urine Yellow; Epithelial Cell Urine Auto 0-2 /hpf (0-2); Glucose Urine UA Negative (Negative); Ketones Urine Negative (Negative); Leukocyte Esterase Urine Negative (Negative); Nitrite Urine Negative (Negative); Protein Urine Trace (Negative); RBC Urine Automated 0-2 /hpf (0-2); Specific Gravity Urine 1.031 (1.000-1.030); Urobilinogen Urine Negative (Negative); WBC Urine Automated 0-5 /hpf (0-5); pH Urine 6.5 (4.5-7.5)
[2024-07-31 16:24] LABS: Folate (Folic Acid),Ser orPlas 13.64 ng/ml (>5.38)
[2024-07-31 16:26] LABS: Thyroid Stimulating Hormone 4.598 uIu/ml (0.300-4.500)
[2024-07-31] MEDS ORDERED: ACETAMINOPHEN 325 MG TAB PO PRN (16:57)
[2024-07-31] MEDS ORDERED: POLYETHYLENE (MIRALAX) 17 GM PACK PO PRN (16:57)
[2024-07-31 17:29] LABS: T4 Free Thyroxine 1.17 ng/dl (0.61-1.60)
[2024-07-31] MEDS: LATANOPROST 0.005% OP SOLN 2.5 ML BTL OP SCH (20:59)
[2024-07-31] MEDS: ASPIRIN 81 MG ECTAB PO SCH (21:00)
[2024-07-31] MEDS: cefTRIAXone SODIUM 2,000 MG/50 ML BAG IV SCH (21:00)
[2024-07-31] MEDS: lisinopril 20 MG TAB PO SCH (21:00)
[2024-08-01 07:14] LABS: Hematocrit (blood only) 22.7 % (37.0-47.0); Hemoglobin 7.9 g/dl (12.0-16.0); Mean Corpuscular Hemoglobin 30.7 pg (25.0-34.0); Mean Corpuscular Hgb Conc 34.8 g/dL (32.0-36.0); Mean Corpuscular Volume 88.3 fL (80.0-100.0); Mean Platelet Volume 12.6 fL (9.4-12.4); Platelet Count 113 K/uL (130-400); RDW Coefficient of Variation 14.1 % (11.5-14.5); RDW Standard Deviation 45.5 fL (36.4-46.3); Red Blood Count 2.57 M/uL (4.20-5.40); White Blood Count 9.18 K/ul (4.8-10.8)
[2024-08-01 07:28] LABS: Albumin Level 2.4 gm/dl (3.4-5.0); BUN Creatinine Ratio 27.7 (10-20); Bilirubin,Total 0.5 mg/dl (0.2-1.0); Creatinine Clr Calc Pharmacy 39.5 ml/min; Globulin 2.5 gm/dl (2.5-4.0); Magnesium 1.9 mg/dl (1.7-2.4); Potassium 3.7 mmol/L (3.5-5.1); Total Protein 4.9 gm/dl (6.0-8.3)
[2024-08-01 07:40] LABS: Prothrombin Time 10.9 Seconds (9.0-12.0)
[2024-08-01] MEDS: CALCIUM CARBONATE 1,250 MG/5 ML UDC PO SCH (08:54)
[2024-08-01] MEDS: CHOLECALCIFEROL 25 MCG (1000 UNITS) TAB PO SCH (08:54)
[2024-08-01] MEDS: TIMOLOL MALEATE 0.5% OP SOLN 5 ML BTL OP SCH (08:55)
--- NOTE | 2024-08-01 11:27 | Hospitalist Progress Note ---
Date of Service August 01, 2024 Assessment & Plan (1) Generalized weakness: (2) Anemia: (3) Elevated liver enzymes: (4) Hypertension: (5) Glaucoma: Plan 89 year old female with PMH significant for hypertension, hyperlipidemia, CKD III, glaucoma, and osteoporosis who presented to the ED today with weakness for the last week. Generalized weakness Started about 1 week ago while she was in [place] and has had a fall and being on the floor for 4 to 6 hours Has had flulike symptoms before but none now No evidence of any infectious condition at this time including negative for Lyme titer Has been getting ceftriaxone intravenously for possible UTI Head CT, head and neck CTA, CXR all unremarkable EKG with NSR Echo of the heart showed mild concentric LVH, no regional wall motion abnormalities, LV systolic function is normal LVEF 65 to 70% and grade 1 diastolic dysfunction Lactate, CK, troponin negative Lyme, anaplasma, babesia screens negative UA negativeBut wait for culture Clinically little better and will continue with cautious amount of intravenous fluid PT and OT evaluation Anemia RBCs 2.97 (down from 3.51 on 07/24), Hgb 9.3 (down from 11.3 on 07/24), Hct 25.9% (down from 33% on 07/24), Plt 87 (down from 151 on 07/24) Iron 20, transferrin 157, TIBC 161, ferritin pending Folate normal Vitamin B12 1422 - consider liver, renal, hematological etiologies Hemoglobin remains low at 7.9 Will check occult blood Elevated liver enzymes AST 165 (up from 132 on 07/24), ALT 116 (up from 91 on 07/24), alk phos 262 (up from 99 on 07/24) Liver ultrasound pending CMP and PT/INR in am LFTs are improving but still remains elevated No evidence of acute cholecystitis but she does have multiple gallstones Will recheck LFTs tomorrow and if elevated will get hepatitis panel Hypertension Chronic, stable per records Continue lisinopril per home dosing Glaucoma Follows with eye doctor per records Continue eye drops per home dosing CKD III Chronic, stable per records Creat 1.16 (down from 1.5 on 07/24). GFR 45 (up from 34.8 on 07/24) Advised to drink more fluid and will give cautious amount of intravenous fluid Hyperlipidemia Chronic, stable per records Not on statin due to age Osteoporosis Chronic, stable per records Takes calcium and vitamin D supplement per records DVT Prophylaxis: SCDs Code Status: FULL CODE - As per discussion at bedside with the patient. PCP: None Discussed with the son in detail Admission and Anticipated Discharge Date Admission Date: July 31, 2024 Subjective 08/01/2024 The patient was seen and examined in medical telemetry unit in presence of the son She was admitted with extreme weakness and tiredness but so far no evidence of any infection Feels a little better but he still remains significantly weak and tired Review of Systems Review of Systems: All systems reviewed and are unremarkable except as noted below Physical Exam Physical Exam: Lying in bed without any acute distress but looks very depressed and fatigued Constitutional: well developed, well nourished, + ill appearing and average body habitus Eyes: PERRL, conjunctivae normal, anicteric sclerae ENMT: external ear and nose normal, oropharynx normal Neck: trachea midline, no thyromegaly Respiratory: no respiratory distress Auscultation: lungs clear to auscultation bilaterally Cardiovascular: Rate/Rhythm: regular rate and regular rhythm; not tachycardic Heart Sounds: normal S1 and normal S2; no murmur Extremities: no edema Gastrointestinal (Abdomen): Inspection/Auscultation: normal bowel sounds; abdomen not distended Percussion/Palpation: abdomen soft; abdomen nontender Musculoskeletal: Does not have any acute arthritis involving any of the joint Neurologic: normal touch/pain/proprioception and moves all extremities; no focal motor deficits Remains generally weak Lymphatic: no cervical or axillary lymphadenopathy Results & Data Results & Data Vital Signs (Past 12 Hours) Vital Signs Temp Pulse Resp BP Pulse Ox O2 Del Method 08/01/24 08:01 36.4 C L 89 18 115/67 96 Room Air 08/01/24 02:58 36.4 C L 88 18 112/67 97 Room Air Laboratory Results Short CBC 07/31/24 08/01/24 Range/Units 10:56 06:30 WBC 9.33 9.18 (4.8-10.8) K/ul Hgb 9.3 L 7.9 L (12.0-16.0) g/dl Hct 25.9 L 22.7 L (37.0-47.0) % Plt Count 87 L 113 L (130-400) K/uL BMP 07/31/24 08/01/24 10:54 06:30 Sodium 131 L 138 Potassium 3.8 3.7 Chloride 100 110 H Carbon Dioxide 26 23 BUN 40 H 26 H Creatinine 1.16 0.94 Glucose 102 H 86 Calcium 8.2 L 7.0 L Cardiac Enzymes 07/31/24 Range/Units 10:54 Total Creatine Kinase 127 (26-192) U/L Liver Function 07/31/24 08/01/24 Range/Units 10:54 06:30 Total Bilirubin 0.8 0.5 (0.2-1.0) mg/dl Direct Bilirubin 0.2 (0-0.2) mg/dl AST 165 H 119 H (13-39) U/L ALT 116 H 85 H (7-52) U/L Alkaline Phosphatase 262 H 203 H (34-104) U/L Albumin 3.0 L 2.4 L (3.4-5.0) gm/dl Urine 07/31/24 Range/Units 15:56 Urine Color Yellow Urine Appearance Clear (Clear) Urine pH 6.5 (4.5-7.5) Ur Specific [place] 1.031 H (1.000-1.030) Urine Protein Trace H (Negative) Urine Glucose (UA) Negative (Negative) Medications Administered Current Inpatient Medications Acetaminophen (Acetaminophen 325 Mg Tab) 650 mg PO Q4H PRN PRN Reason: pain/fever Stop: 08/30/24 16:56 Aspirin (Aspirin 81 Mg Ectab) 81 mg PO HS EDISON Stop: 08/30/24 20:59 Last Admin: 07/31/24 21:00 Dose: 81 mg Calcium Carbonate (Calcium Carbonate 1,250 Mg/5 Ml Udc) 1,200 mg PO QAM EDISON Stop: 08/31/24 08:59 Last Admin: 08/01/24 08:54 Dose: 1,200 mg Sodium Chloride (Nss) 1,000 mls @ 125 mls/hr IV .Q8H EDISON Stop: 08/03/24 12:14 Last Admin: 08/01/24 06:24 Dose: 125 mls/hr Ceftriaxone Sodium (Rocephin) 2,000 mg in 50 mls @ 100 mls/hr IV Q24H EDISON Stop: 08/02/24 20:59 Last Infusion: 07/31/24 21:44 Dose: Infused Latanoprost (Latanoprost 0.005% Op Soln 2.5 Ml Btl) 1 drops OP PM EDISON Stop: 08/30/24 20:59 Last Admin: 07/31/24 20:59 Dose: 1 drops Lisinopril (Lisinopril 20 Mg Tab) 20 mg PO HS EDISON Stop: 08/30/24 20:59 Last Admin: 07/31/24 21:00 Dose: 20 mg Polyethylene Glycol (Polyethylene (Miralax) 17 Gm Pack) 17 gm PO DAILY PRN PRN Reason: Constipation Stop: 08/30/24 16:56 Timolol Maleate (Timolol Maleate 0.5% Op Soln 5 Ml Btl) 1 drops OP QAM EDISON Stop: 08/31/24 08:59 Last Admin: 08/01/24 08:55 Dose: 1 drops Vitamin D (Cholecalciferol 25 Mcg (1000 Units) Tab) 25 mcg PO DAILY EDISON Stop: 08/31/24 08:59 Last Admin: 08/01/24 08:54 Dose: 25 mcg
--- NOTE | 2024-08-01 23:47 | Electrocardiogram Report ---
Test Reason : Blood Pressure : */* mmHG Vent. Rate : 73 BPM Atrial Rate : 73 BPM P-R Int : 120 ms QRS Dur : 82 ms QT Int : 386 ms P-R-T Axes : 51 54 58 degrees QTcB Int : 425 ms Normal sinus rhythm Normal ECG No previous ECGs available Confirmed by Javi Quezada ([id number]) on 08/01/2024 11:46:44 PM Referred By: REFERRED SELF Confirmed By: Javi Quezada
[2024-08-02 06:47] LABS: Hematocrit (blood only) 22.3 % (37.0-47.0); Hemoglobin 7.9 g/dl (12.0-16.0); Mean Corpuscular Hemoglobin 31.5 pg (25.0-34.0); Mean Corpuscular Hgb Conc 35.4 g/dL (32.0-36.0); Mean Corpuscular Volume 88.8 fL (80.0-100.0); Mean Platelet Volume 12.9 fL (9.4-12.4); Platelet Count 173 K/uL (130-400); RDW Coefficient of Variation 14.4 % (11.5-14.5); RDW Standard Deviation 46.7 fL (36.4-46.3); Red Blood Count 2.51 M/uL (4.20-5.40)
[2024-08-02 07:13] LABS: Alanine Aminotransferase 74 U/L (7-52); Albumin Globulin Ratio 0.8 (0.9-2); Albumin Level 2.3 gm/dl (3.4-5.0); Alkaline Phosphatase 199 U/L (34-104); Anion Gap 2 (3-11); BUN Creatinine Ratio 20.2 (10-20); Bilirubin,Total 0.4 mg/dl (0.2-1.0); Blood Urea Nitrogen 17 mg/dl (6-23); Carbon Dioxide 24 mmol/L (21-32); Chloride 112 mmol/L (98-107); Creatinine Clr Calc Pharmacy 44.2 ml/min; Globulin 2.8 gm/dl (2.5-4.0); Glucose 90 mg/dl (70-99(Fasting)); Sodium 138 mmol/L (136-145); Total Protein 5.1 gm/dl (6.0-8.3)
[2024-08-02 07:33] LABS: Basophils # (auto) 0.04 K/uL (0.00-0.20); Basophils % (auto) 0.4 %; Eosinophils # (auto) 0.05 K/uL (0.00-0.50); Eosinophils % (auto) 0.5 %; Immature Granulocytes # (auto) 0.09 K/uL (0.01-0.20); Immature Granulocytes % (auto) 0.9 %; Lymphocytes # (auto) 5.04 K/uL (1.20-3.40); Monocytes # (auto) 0.85 K/uL (0.11-0.59); Monocytes % (auto) 8.1 %; Neutrophils # (auto) 4.43 K/uL (1.40-6.50); Neutrophils % (auto) 42.1 %; Polychromasia 1+
[2024-08-02 08:08] LABS: Potassium 3.7 mmol/L (3.5-5.1)
[2024-08-02] MEDS ORDERED: CALCIUM CHLORIDE 10% 1,000 MG in DEXTROSE 5% 50 ML IV STA (08:18)
[2024-08-02] MEDS ORDERED: POTASSIUM PHOS 3 MMOL/1 ML INFUSION IV STA (08:18)
[2024-08-02] MEDS: CALCIUM GLUCONATE 10% 1,000 MG in NS X1 BAG IV ONE (09:05)
[2024-08-02] MEDS: POTASSIUM PHOSPHATE 21 MMOL in SODIUM CHLORIDE 0.9% 500 ML IV ONE (09:30)
--- NOTE | 2024-08-02 11:25 | Hospitalist Progress Note ---
Date of Service August 02, 2024 Assessment & Plan (1) Generalized weakness: (2) Anemia: (3) Elevated liver enzymes: (4) Hypertension: (5) Glaucoma: Plan 89 year old female with PMH significant for hypertension, hyperlipidemia, CKD III, glaucoma, and osteoporosis who presented to the ED today with weakness for the last week. Generalized weakness Started about 1 week ago while she was in [place] and has had a fall and being on the floor for 4 to 6 hours Has had flulike symptoms before but none now No evidence of any infectious condition at this time including negative for Lyme titer Has been getting ceftriaxone intravenously for possible UTI Head CT, head and neck CTA, CXR all unremarkable EKG with NSR Echo of the heart showed mild concentric LVH, no regional wall motion abnormalities, LV systolic function is normal LVEF 65 to 70% and grade 1 diastolic dysfunction Lactate, CK, troponin negative Lyme, anaplasma, babesia screens negative UA negativeBut wait for culture Clinically little better and will continue with cautious amount of intravenous fluid PT and OT evaluation- had PT evaluation yesterday and advised acute rehab Generalized weakness is persisting without any other significant symptoms The son is worried about having Parkinson's disease as he was told by the ER physician and wanted to have an neuro evaluation Neurology consult is placed Electrolyte imbalance Calcium, phosphate and potassium were replaced Will recheck tomorrow Anemia RBCs 2.97 (down from 3.51 on 07/24), Hgb 9.3 (down from 11.3 on 07/24), Hct 25.9% (down from 33% on 07/24), Plt 87 (down from 151 on 07/24) Iron 20, transferrin 157, TIBC 161, ferritin pending Folate normal Vitamin B12 1422 - consider liver, renal, hematological etiologies Hemoglobin remains low at 7.9 Will check occult blood Hemoglobin remains stable at 7.9 with almost normal differential Elevated liver enzymes AST 165 (up from 132 on 07/24), ALT 116 (up from 91 on 07/24), alk phos 262 (up from 99 on 07/24) Liver ultrasound pending CMP and PT/INR in am LFTs are improving but still remains elevated No evidence of acute cholecystitis but she does have multiple gallstones Will recheck LFTs tomorrow and if elevated will get hepatitis panel LFTs are improving will check for hepatitis panel Hypertension Chronic, stable per records Continue lisinopril per home dosing Glaucoma Follows with eye doctor per records Continue eye drops per home dosing CKD III Chronic, stable per records Creat 1.16 (down from 1.5 on 07/24). GFR 45 (up from 34.8 on 07/24) Advised to drink more fluid and will give cautious amount of intravenous fluid Hyperlipidemia Chronic, stable per records Not on statin due to age Osteoporosis Chronic, stable per records Takes calcium and vitamin D supplement per records DVT Prophylaxis: SCDs Code Status: FULL CODE - As per discussion at bedside with the patient. PCP: None Discussed with the son in detail Admission and Anticipated Discharge Date Admission Date: July 31, 2024 Subjective 08/01/2024 The patient was seen and examined in medical telemetry unit in presence of the son She was admitted with extreme weakness and tiredness but so far no evidence of any infection Feels a little better but he still remains significantly weak and tired 08/02/2024 The patient was seen and examined in medical telemetry unit in presence of the son She has been stable without any improvement Remains profoundly weak and lethargic without any significant symptoms Review of Systems Review of Systems: All systems reviewed and are unremarkable except as noted below Physical Exam Physical Exam: Lying in bed without any acute distress but looks very depressed and fatigued Constitutional: well developed, well nourished, + ill appearing and average body habitus Eyes: PERRL, conjunctivae normal, anicteric sclerae ENMT: external ear and nose normal, oropharynx normal Neck: trachea midline, no thyromegaly Respiratory: no respiratory distress Auscultation: lungs clear to auscultation bilaterally Cardiovascular: Rate/Rhythm: regular rate and regular rhythm; not tachycardic Heart Sounds: normal S1 and normal S2; no murmur Extremities: no edema Gastrointestinal (Abdomen): Inspection/Auscultation: normal bowel sounds; abdomen not distended Percussion/Palpation: abdomen soft; abdomen nontender Neurologic: normal touch/pain/proprioception and moves all extremities; no focal motor deficits Lymphatic: no cervical or axillary lymphadenopathy Results & Data Results & Data Vital Signs (Past 12 Hours) Vital Signs Temp Pulse Pulse Resp BP Pulse Ox O2 Del Method 08/02/24 09:48 81 08/02/24 07:52 Room Air 08/02/24 07:42 36.4 C L 101 H 18 137/71 97 Room Air 08/02/24 03:46 36.5 C 97 H 20 128/69 96 Room Air 08/01/24 23:50 36.8 C 80 20 108/65 96 Room Air Laboratory Results Short CBC 08/02/24 Range/Units 06:26 WBC 10.50 (4.8-10.8) K/ul Hgb 7.9 L (12.0-16.0) g/dl Hct 22.3 L (37.0-47.0) % Plt Count 173 D (130-400) K/uL BMP 08/02/24 08/02/24 06:26 07:21 Sodium 138 Potassium TNP 3.7 Chloride 112 H Carbon Dioxide 24 BUN 17 Creatinine 0.84 Glucose 90 Calcium 7.0 L Liver Function 08/02/24 08/02/24 Range/Units 06:26 07:21 Total Bilirubin 0.4 (0.2-1.0) mg/dl AST TNP 87 H ALT 74 H (7-52) U/L Alkaline Phosphatase 199 H (34-104) U/L Albumin 2.3 L (3.4-5.0) gm/dl Medications Administered Current Inpatient Medications Acetaminophen (Acetaminophen 325 Mg Tab) 650 mg PO Q4H PRN PRN Reason: pain/fever Stop: 08/30/24 16:56 Aspirin (Aspirin 81 Mg Ectab) 81 mg PO HS EDISON Stop: 08/30/24 20:59 Last Admin: 08/01/24 20:30 Dose: 81 mg Calcium Carbonate (Calcium Carbonate 1,250 Mg/5 Ml Udc) 1,200 mg PO QAM EDISON Stop: 08/31/24 08:59 Last Admin: 08/02/24 08:01 Dose: 1,200 mg Sodium Chloride (Nss) 1,000 mls @ 125 mls/hr IV .Q8H EDISON Stop: 08/03/24 12:14 Last Admin: 08/02/24 04:44 Dose: 125 mls/hr Ceftriaxone Sodium (Rocephin) 2,000 mg in 50 mls @ 100 mls/hr IV Q24H EDISON Stop: 08/02/24 20:59 Last Infusion: 08/01/24 21:46 Dose: Infused Potassium Phosphate 21 mmol/ (Sodium Chloride) 507 mls @ 88 mls/hr IV ONE ONE Stop: 08/02/24 14:45 Last Admin: 08/02/24 09:30 Dose: 88 mls/hr Latanoprost (Latanoprost 0.005% Op Soln 2.5 Ml Btl) 1 drops OP PM EDISON Stop: 08/30/24 20:59 Last Admin: 08/01/24 20:30 Dose: 1 drops Lisinopril (Lisinopril 20 Mg Tab) 20 mg PO HS EDISON Stop: 08/30/24 20:59 Last Admin: 08/01/24 20:31 Dose: 20 mg Polyethylene Glycol (Polyethylene (Miralax) 17 Gm Pack) 17 gm PO DAILY PRN PRN Reason: Constipation Stop: 08/30/24 16:56 Timolol Maleate (Timolol Maleate 0.5% Op Soln 5 Ml Btl) 1 drops OP QAM EDISON Stop: 08/31/24 08:59 Last Admin: 08/02/24 08:03 Dose: 1 drops Vitamin D (Cholecalciferol 25 Mcg (1000 Units) Tab) 25 mcg PO DAILY EDISON Stop: 08/31/24 08:59 Last Admin: 08/02/24 08:01 Dose: 25 mcg
[2024-08-02 12:56] LABS: Hep B Surface Ag with confirm Negative (Negative)
[2024-08-02 13:01] LABS: Hep C Ab Rflx HepCQuant RNA Negative (Negative)
[2024-08-03 00:19] VITALS: TEMP 97.9
[2024-08-03 07:37] VITALS: RESP 16; O2SAT 98
[2024-08-03 08:26] LABS: Albumin Globulin Ratio 0.9 (0.9-2); Albumin Level 2.4 gm/dl (3.4-5.0); BUN Creatinine Ratio 16.2 (10-20); Bilirubin,Total 0.5 mg/dl (0.2-1.0); Calcium 7.2 mg/dl (8.6-10.3); Creatinine Clr Calc Pharmacy 50.1 ml/min; Globulin 2.7 gm/dl (2.5-4.0); Magnesium 1.8 mg/dl (1.7-2.4); Phosphorus 2.3 mg/dl (2.5-4.9); Total Protein 5.1 gm/dl (6.0-8.3)
[2024-08-03] MEDS ORDERED: SODIUM PHOSPHATE 3 MMOL/1 ML 5 ML VIAL IV ONE (08:56)
--- NOTE | 2024-08-03 08:58 | Hospitalist Progress Note ---
Date of Service August 03, 2024 Assessment & Plan (1) Generalized weakness: (2) Anemia: (3) Elevated liver enzymes: (4) Hypertension: (5) Glaucoma: Plan 89 year old female with PMH significant for hypertension, hyperlipidemia, CKD III, glaucoma, and osteoporosis who presented to the ED today with weakness for the last week. Generalized weakness Started about 1 week ago while she was in [place] and has had a fall and being on the floor for 4 to 6 hours Has had flulike symptoms before but none now No evidence of any infectious condition at this time including negative for Lyme titer Has been getting ceftriaxone intravenously for possible UTI Head CT, head and neck CTA, CXR all unremarkable EKG with NSR Echo of the heart showed mild concentric LVH, no regional wall motion abnormalities, LV systolic function is normal LVEF 65 to 70% and grade 1 diastolic dysfunction Lactate, CK, troponin negative Lyme, anaplasma, babesia screens negative UA negativeBut wait for culture Clinically little better and will continue with cautious amount of intravenous fluid PT and OT evaluation- had PT evaluation yesterday and advised acute rehab Generalized weakness is persisting without any other significant symptoms The son is worried about having Parkinson's disease as he was told by the ER physician and wanted to have an neuro evaluation Remains medically stable with profound weakness and tiredness She wants to be discharged and the son wants to take her home Will have outpatient neuroevaluation She wants to be discharged and her son wants to take her home today She was advised to take extreme precaution to avoid falls and drink more fluid and keep appointments with her healthcare providers Electrolyte imbalance Calcium, phosphate and potassium were replaced Calcium is elevated up at 7.2 and phosphate still a little down at 2.3 Will give additional doses IV Anemia RBCs 2.97 (down from 3.51 on 07/24), Hgb 9.3 (down from 11.3 on 07/24), Hct 25.9% (down from 33% on 07/24), Plt 87 (down from 151 on 07/24) Iron 20, transferrin 157, TIBC 161, ferritin pending Folate normal Vitamin B12 1422 - consider liver, renal, hematological etiologies Hemoglobin remains low at 7.9 Will check occult blood Hemoglobin remains stable at 7.9 with almost normal differential Elevated liver enzymes AST 165 (up from 132 on 07/24), ALT 116 (up from 91 on 5/1), alk phos 262 (up from 99 on 07/24) Liver ultrasound pending CMP and PT/INR in am LFTs are improving but still remains elevated No evidence of acute cholecystitis but she does have multiple gallstones Will recheck LFTs tomorrow and if elevated will get hepatitis panel LFTs are improving Hepatitis panel B and C-Negative Hypertension Chronic, stable per records Continue lisinopril per home dosing Glaucoma Follows with eye doctor per records Continue eye drops per home dosing CKD III Chronic, stable per records Creat 1.16 (down from 1.5 on 07/24). GFR 45 (up from 34.8 on 07/24) Advised to drink more fluid and will give cautious amount of intravenous fluid Kidney function remains normal Hyperlipidemia Chronic, stable per records Not on statin due to age Osteoporosis Chronic, stable per records Takes calcium and vitamin D supplement per records DVT Prophylaxis: SCDs Code Status: FULL CODE - As per discussion at bedside with the patient. PCP: None Discussed with the son in detail and she will be discharged home this afternoon Admission and Anticipated Discharge Date Admission Date: July 31, 2024 Subjective 08/01/2024 The patient was seen and examined in medical telemetry unit in presence of the son She was admitted with extreme weakness and tiredness but so far no evidence of any infection Feels a little better but he still remains significantly weak and tired 08/02/2024 The patient was seen and examined in medical telemetry unit in presence of the son She has been stable without any improvement Remains profoundly weak and lethargic without any significant symptoms 08/03/2024 The patient was seen and examined in medical telemetry unit She has been stable but remains weak and lethargic and wants to go home She has been eating and drinking reasonably Denies any other significant symptoms except weakness Review of Systems Review of Systems: All systems reviewed and are unremarkable except as noted below Physical Exam Physical Exam: Lying in bed without any acute distress but looks very depressed and fatigued Constitutional: well developed, well nourished, + ill appearing and average body habitus Eyes: PERRL, conjunctivae normal, anicteric sclerae ENMT: external ear and nose normal, oropharynx normal Neck: trachea midline, no thyromegaly Respiratory: no respiratory distress Auscultation: lungs clear to auscultation bilaterally Cardiovascular: Rate/Rhythm: regular rate and regular rhythm; not tachycardic Heart Sounds: normal S1 and normal S2; no murmur Extremities: no edema Gastrointestinal (Abdomen): Inspection/Auscultation: normal bowel sounds; abdomen not distended Percussion/Palpation: abdomen soft; abdomen nontender Musculoskeletal: No acute arthritis involving any of the joint Neurologic: normal touch/pain/proprioception and moves all extremities; no focal motor deficits Lymphatic: no cervical or axillary lymphadenopathy Results & Data Results & Data Vital Signs (Past 12 Hours) Vital Signs Temp Pulse Pulse Resp BP Pulse Ox O2 Del Method 08/03/24 07:36 36.6 C 98 H 16 153/79 H 98 Room Air 08/03/24 07:15 Room Air 08/03/24 03:55 36.6 C 101 H 20 139/71 96 Room Air 08/03/24 00:18 36.6 C 102 H 20 143/73 H 98 Room Air 08/02/24 21:48 90 Laboratory Results [facility] 08/03/24 07:20 Sodium 139 Potassium 4.0 Chloride 114 H Carbon Dioxide 22 BUN 12 Creatinine 0.74 Glucose 92 Calcium 7.2 L Liver Function 08/03/24 Range/Units 07:20 Total Bilirubin 0.5 (0.2-1.0) mg/dl AST 62 H (13-39) U/L ALT 66 H (7-52) U/L Alkaline Phosphatase 185 H (34-104) U/L Albumin 2.4 L (3.4-5.0) gm/dl Medications Administered Current Inpatient Medications Acetaminophen (Acetaminophen 325 Mg Tab) 650 mg PO Q4H PRN PRN Reason: pain/fever Stop: 08/30/24 16:56 Aspirin (Aspirin 81 Mg Ectab) 81 mg PO HS EDISON Stop: 08/30/24 20:59 Last Admin: 08/02/24 21:21 Dose: 81 mg Calcium Carbonate (Calcium Carbonate 1,250 Mg/5 Ml Udc) 1,200 mg PO QAM EDISON Stop: 08/31/24 08:59 Last Admin: 08/03/24 08:42 Dose: 1,200 mg Sodium Chloride (Nss) 1,000 mls @ 125 mls/hr IV .Q8H EDISON Stop: 08/03/24 12:14 Last Infusion: 08/03/24 08:40 Dose: Infused Latanoprost (Latanoprost 0.005% Op Soln 2.5 Ml Btl) 1 drops OP PM EDISON Stop: 08/30/24 20:59 Last Admin: 08/02/24 21:21 Dose: 1 drops Lisinopril (Lisinopril 20 Mg Tab) 20 mg PO HS EDISON Stop: 08/30/24 20:59 Last Admin: 08/02/24 21:21 Dose: 20 mg Polyethylene Glycol (Polyethylene (Miralax) 17 Gm Pack) 17 gm PO DAILY PRN PRN Reason: Constipation Stop: 08/30/24 16:56 Timolol Maleate (Timolol Maleate 0.5% Op Soln 5 Ml Btl) 1 drops OP QAM EDISON Stop: 08/31/24 08:59 Last Admin: 08/03/24 08:41 Dose: 1 drops Vitamin D (Cholecalciferol 25 Mcg (1000 Units) Tab) 25 mcg PO DAILY EDISON Stop: 08/31/24 08:59 Last Admin: 08/03/24 08:41 Dose: 25 mcg
[2024-08-03] MEDS: SODIUM PHOSPHATE 15 MMOL in SODIUM CHLORIDE 0.9% 250 ML IV ONE (09:47)
[2024-08-03] MEDS: CALCIUM GLUCONATE 1,000 MG/60 ML BAG IV STA (10:28)
[2024-08-03 10:36] VITALS: BP 130/74; PULSE 83
--- NOTE | 2024-08-04 07:15 | Discharge Summary ---
Date of Service August 04, 2024 Admission HPI Per Admitting Provider 89 year old female with PMH significant for hypertension, hyperlipidemia, CKD III, glaucoma, and osteoporosis who presented to the ED today with weakness for the last week. History obtained from patient, her sons, and outside records. Patient reports that she fell last and could not get up due to feeling weak. She notes she hit the left side of her head but did not lose consciousness. She was down for approximately four hours. She sought evaluation at [facility] ED on 07/24/2024 where she had multiple imaging studies (head CT, cervical spine CT, maxillofacial CT, left shoulder xray, CXR) that we re all largely unremarkable per records. Her labs demonstrated mild anemia and elevated LFTs. Her UA was suspicious for infection. She was discharged from the ED with a 7 day course of Macrobid and followed up with her PCP on 07/30/2024. Her PCP noted negative urine and blood cultures per records. Since the fall, she has had ongoing weakness and poor appetite. She also notes difficulty chewing. She denies fevers, chills, cough, cold symptoms, chest pain, SOB, abdominal pain, N/V, urinary symptoms. She notes a runny nose that is year round for her and one episode of diarrhea on Sunday that has since resolved. She reports bilateral leg swelling over the last week. She has been living with her sons in [place] since the fall. Prior to the fall, her sons last saw her over [facility] of this year where they noted she was at her baseline and functioning independently at home and walking 1/4 mile per day. Since the fall, she has needed assistance with ADLs. Her son also notes concern about potential Parkinson's disease as he reports bilateral hand tremors, shuffling gait, and drooling that have been progressing over the last year. Admission Exam Per Admitting Provider General: Elderly woman, ill appearing Eyes: PERRL, conjunctivae normal, not pale, anicteric sclerae, EOM intact bilaterally ENMT: External ear and nose normal, oropharynx normal Respiratory: Normal respiratory effort, no respiratory distress, lungs clear to auscultation, no crackles and no wheezes Cardiovascular: RRR S1 S2 Gastrointestinal (Abdomen): Abdomen is not distended, soft, non-tender to palpation, no guarding, no palpable hepatosplenomegaly, normal bowel sounds Musculoskeletal: +bilateral pedal edema Genitourinary:No CVA tenderness Neurologic: Alert and oriented x 3, +generalized weakness, No focal weakness Psychiatric: Flat affect Principal Diagnosis Generalized weakness, hypertension Discharge Exam Lying in bed without any acute distress but looks very depressed and fatigued Constitutional well developed, well nourished, + ill appearing and average body habitus Eyes PERRL, conjunctivae normal, anicteric sclerae ENMT external ear and nose normal, oropharynx normal Neck trachea midline, no thyromegaly Respiratory no respiratory distress Auscultation: lungs clear to auscultation bilaterally Cardiovascular Rate/Rhythm: regular rate and regular rhythm; not tachycardic Heart Sounds: normal S1 and normal S2; no murmur Extremities: no edema Gastrointestinal (Abdomen) Inspection/Auscultation: normal bowel sounds; abdomen not distended Percussion/Palpation: abdomen soft; abdomen nontender Neurologic normal touch/pain/proprioception and moves all extremities; no focal motor deficits Lymphatic no cervical or axillary lymphadenopathy Discharge Data Allergies Allergy/AdvReac Type Severity Reaction Status Date / Time No Known Allergies Allergy Verified 07/31/24 15:55 Consultations 07/31/24 14:20 ED Decision to Admit Stat Ordered Studies 07/31/24 12:03 CT angio head w con Stat CT angio neck with con Stat CT head/brain wo con Stat 07/31/24 14:57 US liver Urgent Hospital Course (1) Generalized weakness: (2) Anemia: (3) Elevated liver enzymes: (4) Hypertension: (5) Glaucoma: Plan 89 year old female with PMH significant for hypertension, hyperlipidemia, CKD III, glaucoma, and osteoporosis who presented to the ED today with weakness for the last week. Generalized weakness Started about 1 week ago while she was in [place] and has had a fall and being on the floor for 4 to 6 hours Has had flulike symptoms before but none now No evidence of any infectious condition at this time including negative for Lyme titer Has been getting ceftriaxone intravenously for possible UTI Head CT, head and neck CTA, CXR all unremarkable EKG with NSR Echo of the heart showed mild concentric LVH, no regional wall motion abnormalities, LV systolic function is normal LVEF 65 to 70% and grade 1 diastolic dysfunction Lactate, CK, troponin negative Lyme, anaplasma, babesia screens negative UA negativeBut wait for culture Clinically little better and will continue with cautious amount of intravenous fluid PT and OT evaluation- had PT evaluation yesterday and advised acute rehab Generalized weakness is persisting without any other significant symptoms The son is worried about having Parkinson's disease as he was told by the ER physician and wanted to have an neuro evaluation Remains medically stable with profound weakness and tiredness She wants to be discharged and the son wants to take her home Will have outpatient neuroevaluation She wants to be discharged and her son wants to take her home today She was advised to take extreme precaution to avoid falls and drink more fluid and keep appointments with her healthcare providers Electrolyte imbalance Calcium, phosphate and potassium were replaced Calcium is elevated up at 7.2 and phosphate still a little down at 2.3 Will give additional doses IV Anemia RBCs 2.97 (down from 3.51 on 07/24), Hgb 9.3 (down from 11.3 on 07/24), Hct 25.9% (down from 33% on 07/24), Plt 87 (down from 151 on 07/24) Iron 20, transferrin 157, TIBC 161, ferritin pending Folate normal Vitamin B12 1422 - consider liver, renal, hematological etiologies Hemoglobin remains low at 7.9 Will check occult blood Hemoglobin remains stable at 7.9 with almost normal differential Elevated liver enzymes AST 165 (up from 132 on 07/24), ALT 116 (up from 91 on 07/24), alk phos 262 (up from 99 on 07/24) Liver ultrasound pending CMP and PT/INR in am LFTs are improving but still remains elevated No evidence of acute cholecystitis but she does have multiple gallstones Will recheck LFTs tomorrow and if elevated will get hepatitis panel LFTs are improving Hepatitis panel B and C-Negative Hypertension Chronic, stable per records Continue lisinopril per home dosing Glaucoma Follows with eye doctor per records Continue eye drops per home dosing CKD III Chronic, stable per records Creat 1.16 (down from 1.5 on 07/24). GFR 45 (up from 34.8 on 07/24) Advised to drink more fluid and will give cautious amount of intravenous fluid Kidney function remains normal Hyperlipidemia Chronic, stable per records Not on statin due to age Osteoporosis Chronic, stable per records Takes calcium and vitamin D supplement per records DVT Prophylaxis: SCDs Code Status: FULL CODE - As per discussion at bedside with the patient. PCP: None Discussed with the son in detail and she will be discharged home this afternoon Total Time Total Time Spent Total Time Spent (In Minutes): 35 Minutes Discharge Plan Discharge Items Patient Disposition: Home - Self-Care Reason For Visit: WEAKNESS Discharge Diagnosis: Generalized weakness, hypertension Condition on Discharge: Fair Activity: Resume your previous activity Non-emergency contact: Primary Care Provider Call non-emergency contact if: you have any medication questions and your symp toms worsen Follow-up/Referrals: PCP,NO [Primary Care Provider] - Diet: Regular Addtl Attending Provider Instructions: Please take precautions to avoid falls Try to drink more fluid to avoid any dehydration Take your medications as advised Please keep your appointments with a healthcare providers Pending Studies at Discharge: Yes Studies:: Hepatitis panel Stand-Alone Forms: My [employer], Smoking Cessation Medications and DC Order Prescriptions: Continued latanoprost 0.005 % drops 1 drp ophthalmic (eye) PM lisinopril 20 mg tablet 20 mg PO HS multivitamin Tablet 1 tab PO DAILY aspirin 81 mg Tablet,Delayed Release (Dr/Ec) 81 mg PO HS acetaminophen 500 mg Tablet 1,000 mg PO DIRECTED PRN (Reason: Pain) timolol maleate 0.5 % drops 1 drp ophthalmic (eye) QAM calcium carbonate 600 mg calcium (1,500 mg) Tablet 1,200 mg PO DAILY Rx Instructions: takes two tabs cholecalciferol (vitamin D3) 25 mcg (1,000 unit) Capsule 25 mcg PO DAILY Discontinued nitrofurantoin monohyd/m-cryst 100 mg capsule 100 mg PO BID Rx Instructions: 07/31-last dose will be this afternoon Discharge Orders: Discharge Order (Routine); Ordered 08/03/24 Ordered By: Christ Berumen Admission Data Admit Date/Time: 07/31/24 15:25 Attending Provider: Christ Berumen Admit Provider: Jesusita Najera I. Primary Care Provider: PCP,NO Other Providers: Jesusita Najera I.; [place],[facility]; Perez Landin [facility] Other Interventions: Discharge Summary Assessment (RN) Last Done: 08/03/24 10:35
[2024-08-04 11:03] LABS: Babesia microti DNA Not Detected (Not Detected)
[2024-08-05 12:32] LABS: Hepatitis A Antibody IgM NON-REACTIVE (NON-REACTIVE); Hepatitis B Core Antibody IgM NON-REACTIVE (NON-REACTIVE)
== END 2024-08-03 11:43 | disposition home or self-care (01) | DRG 948 ==
LOC: ED 09:59 → SUATTDRO 15:25 → 2N 15:25